=== PATIENT | female | born 1965 | race Caucasian/White ===

== ENCOUNTER 2019-02-22 08:00 | Outpatient (CLI) | payer MEDICAID ==
[2019-02-22 18:52] LABS: CALCIUM 8.9 mg/dL (8.5-10.3); CREATININE 0.5 mg/dL (0.4-1.0)
== END 2019-02-22 23:59 | disposition home or self-care (01) ==
LOC: LAB.N 08:00
PROVIDERS: ATTEND Nurse Practitioner Gerontology
DX: N15.9 Renal tubulo-interstitial disease, unspecified (principal)
CPT/HCPCS: 36415; 80048

== ENCOUNTER 2019-05-17 13:38 | Outpatient (CLI) | payer BC, MEDICAID | END 2019-05-17 23:59 | disposition home or self-care (01) | LOC: LAB.N 13:38 | PROVIDERS: ATTEND Nurse Practitioner Gerontology | DX: Z00.00 Encounter for general adult medical examination without abnormal findings (principal); Z98.84 Bariatric surgery status | CPT/HCPCS: 36415; 84443 ==

== ENCOUNTER 2019-05-31 11:49 | Outpatient (CLI) | payer BC, MEDICAID ==
--- NOTE | 2019-05-31 13:08 | Mammography Report ---
Reason: LT BREAST PAIN, BREAST CA Procedure Date: 05/31/2019 Accession Number: [id number] / [id number] Procedure: TIMOTHY - Diagnostic Dig Bilat CPT Code: Final Report FULL RESULT: EXAM: Diagnostic Dig Bilat DATE: 05/31/2019 12:23 PM CLINICAL HISTORY: Diagnostic examination. Personal history of breast cancer in the left breast status post lumpectomy in 2018. Left breast pain. TECHNIQUE: (B) - Bilateral CC and MLO views were obtained. Left laterally exaggerated CC view and bilateral ML views are obtained. COMPARISON: 08/19/2018 through 07/17/2017. PARENCHYMAL PATTERN: (A) - The breast(s) demonstrate(s) scattered fibroglandular densities. FINDINGS: Postsurgical changes in the left breast demonstrate expected interval evolution, probably benign. There are no suspicious masses, calcifications, or areas of distortion. IMPRESSION: Probably Benign. BI-RADS category 3. RECOMMENDATION: (12MOS) - Recommend 12 month follow-up exam. Left breast. At the time of right breast annual screening mammography. BI-RADS CATEGORY: (3) - Probably Benign. STANDARD QUALIFYING STATEMENTS: 1. This examination was not reviewed with the aid of Computer-Aided Detection (CAD). 2. A negative or benign imaging report should not preclude biopsy if clinically suspicious findings are present. 3. Dense breasts may obscure an underlying neoplasm. 4. This examination was reviewed with the aid of 3D breast imaging (tomosynthesis).
== END 2019-05-31 11:50 | disposition home or self-care (01) ==
LOC: DI 11:49
PROVIDERS: ATTEND Nurse Practitioner Gerontology
DX: C50.912 Malignant neoplasm of unspecified site of left female breast (principal)
CPT/HCPCS: 77066